=== PATIENT | male | born 1970 | race African-American/Black ===

== ENCOUNTER 2020-01-31 15:35 | Emergency (ER) | payer OTHER, MEDICAID ==
[~2020-01-31] VITALS: Ht 170.2 cm; Wt 98.0 kg
[2020-01-31 17:35] VITALS: BP 157/87
== END 2020-01-31 18:03 | disposition home or self-care (01) ==
LOC: ER 15:46
DX: I10 Essential (primary) hypertension (principal)
CPT/HCPCS: 93005; 99283